=== PATIENT | female | born 2000 | race Caucasian/White ===

== ENCOUNTER 2022-04-16 17:06 | Emergency (ER) | payer OTHER, SELFPAY ==
[2022-04-16 17:07] VITALS: BP 86/63; PULSE 108; RESP 14; TEMP 37; O2SAT 100; BMI 18.6
--- NOTE | 2022-04-16 17:43 | EDS_ITS ---
HPI History of Present Illness Chief Complaint: Bite Informant: patient Narrative Narrative: This is a 22-year-old female presenting to the emergency room out of concern for a bat bite. Patient is a college [employer] student. She notes that there has been a number of bat incidents on campus. She has 2 lesions on her forearm on the left that are linear in [facility] could not discount a bat bite so they sent her to emergency. The patient notes that she has not seen a bat in her room but is concerned because of the large number of incidents on campus. She denies any constitutional symptoms. ROS ROS ED Constitutional Constitutional ED: Denies chills, fever(s) or weight loss Eyes Eyes: Denies change in vision or diplopia ENT ENT ED: Denies ear pain, rhinorrhea or sore throat Cardiovascular Cardiovascular: Denies chest pain, orthopnea, palpitations or racing heartbeat Respiratory/Chest Respiratory/Chest: Denies cough, dyspnea or orthopnea Gastrointestinal Gastrointestinal: Denies abdominal pain, diarrhea, nausea or vomiting Genitourinary Genitourinary ED: Denies dysuria, hematuria or urinary frequency Musculoskeletal Musculoskeletal: Denies arthralgias or myalgias Integumentary Reports Abrasions; Denies abscess or rash Neurologic Neurologic: Denies headache(s) or weakness Psychiatric Psychiatric: Denies anxiety, depression, suicidal ideation or suicidal thoughts Endocrine Endocrinology: Denies polydipsia, polyphagia or polyuria Allergic/Immunologic Allergic/Immunologic ED: Denies mouth swelling, tongue swelling or urticaria PFSH PFSH Allergy/AdvReac Type Severity Reaction Status Date / Time No Known Allergies Allergy Verified 04/16/22 17:09 Social History (Updated 04/16/22 @ 17:[address] Tato Jurado, DO) current gender identity: female Smoking Status: Never smoker EXAM Physical Exam Const Vital Signs: 04/16/22 17:07 04/16/22 17:07 Temperature 98.6 F Temperature Source Temporal Pulse Rate 108 H Respiratory Rate 14 Blood Pressure 86/63 L Blood Pressure Mean 70 Pulse Ox 100 Oxygen Delivery Method Room Air Positive well nourished and well developed General Appearance ED: well developed HEENT Reports normocephalic, head/scalp atraumatic and moist mucous membranes Eyes PERRL and EOMs intact bilaterally Neck no lymphadenopathy, supple and no JVD Resp normal respiratory effort and clear to auscultation bilaterally Cardio regular rate, regular rhythm and no murmurs GI normal to inspection, nondistended, normoactive bowel sounds and non-tender Palpation: soft Back/Spine no CVA tenderness and normal ROM Extremity normal to inspection General Extremety ED: Negative for edema General Extremity: Negative for edema Neuro oriented x3 and CN's II-XII intact bilaterally Sensorium / Orientation: alert Motor Exam: strength 5/5 throughout Psych mental status grossly normal Mood & Affect: Negative for depressed or tearful Skin no rashes or lesions noted Skin Narrative: There are 2 superficial linear abrasions to the left anterior forearm of approximately 1 cm duration. They are linear and erythematous without evidence of secondary infection. MDM MDM MDM Narrative Medical decision making narrative: I cannot tell if the patient was bitten by a bat or not my suspicion is that she has not however given the numerous people that have been bitten by bats in the [facility] we are going to go ahead and give her rabies immunoglobulin and the vaccine. Patient notes understanding of the risk benefits and provides verbal consent for this. Discharge Plan Triage Chief Complaint: Bite ED Provider: Tato Jurado Dx/Rx/DC Orders Clinical Impression: Forearm abrasion, Exposure to bat without known bite Instructions: Understanding Rabies Disposition Disposition: Home, Self Care
[2022-04-16] MEDS: Rabies Vaccine,Human Diploid 2.5 UNITS Vial IM (18:11)
[2022-04-16] MEDS: Rabies Immune Globulin 150 UNITS/ML 950 UNITS IM (18:12)
--- NOTE | 2022-04-16 18:37 | ED.RN ---
pt due for rabies vaccine on . Spoke with Gaby in [facility] pharmacy and states if she needs to get a vaccine at another facility- that is okay. provided copy of vaccine paperwork to pt.
== END 2022-04-16 18:38 | disposition home or self-care (01) ==
LOC: ED 17:48
PROVIDERS: Emergency Provider Emergency Medicine; Visit Provider Emergency Medicine
DX: S50.812A Abrasion of left forearm, initial encounter (principal); Z20.3 Contact with and (suspected) exposure to rabies; X58.XXXA Exposure to other specified factors, initial encounter; Z23 Encounter for immunization
CPT/HCPCS: 90375; 90675; 99282

== ENCOUNTER 2022-04-19 14:34 | Outpatient (CLI) | payer OTHER, SELFPAY ==
[2022-04-19 14:55] VITALS: BP 118/87; PULSE 90; RESP 16; O2SAT 100; BMI 18.6
[2022-04-19] MEDS: Rabies Vaccine,Human Diploid 2.5 UNITS Vial IM (14:59)
== END 2022-04-19 15:30 | disposition home or self-care (01) ==
PROVIDERS: Visit Provider Emergency Medicine
DX: Z23 Encounter for immunization (principal)
CPT/HCPCS: 90675; 96372

== ENCOUNTER 2022-04-23 15:05 | Outpatient (CLI) | payer OTHER, SELFPAY ==
[2022-04-23 15:06] VITALS: BP 90/77; PULSE 91; RESP 16; TEMP 37.1; O2SAT 98; BMI 18.6
[2022-04-23] MEDS: Rabies Vaccine,Human Diploid 2.5 UNITS Vial IM (15:15)
== END 2022-04-23 15:32 | disposition home or self-care (01) ==
DX: Z23 Encounter for immunization (principal)
CPT/HCPCS: 90675; 96372

== ENCOUNTER 2022-04-30 15:09 | Emergency (ER) | payer OTHER, SELFPAY ==
[2022-04-30 15:44] VITALS: BMI 18.6
[2022-04-30] MEDS: Rabies Vaccine,Human Diploid 2.5 UNITS Vial IM (15:48)
--- NOTE | 2022-04-30 16:15 | ED.RN ---
Shot time complete, pt d/c home.
== END 2022-04-30 23:59 | disposition home or self-care (01) ==
LOC: ED 16:21
DX: Z20.3 Contact with and (suspected) exposure to rabies (principal); Z23 Encounter for immunization
CPT/HCPCS: 96372; 90675